=== PATIENT | male | born 1980 | race Caucasian/White ===

== ENCOUNTER 2018-05-06 11:36 | Day surgery (SDC) | payer MEDICAID ==
[2018-05-01 08:40] VITALS: BMI 25.4
[2018-05-06] MEDS ORDERED: ceFAZolin IV 1 gm in Dextrose 1 GM/50 ML BAG IVPB ONE ×2 (14:18→14:47)
--- NOTE | 2018-05-06 14:21 | PCM.SURG1 ---
Surgeon's Initial Post Op Note - Surgeon's Notes Surgeon: Maddi Chocolate Dipper: KATHYA Type of Anesthesia: General LMA Anesthesia Administered By: staff Pre-Operative Diagnosis: Bladder tumor Operative Findings: Medium bladder tomor Post-Operative Diagnosis: same Operation Performed: TURBT MEDIUM Specimen/Specimens Removed: TUMOR Estimated Blood Loss: EBL {In ML}: 0 Blood Products Given: N/A Drains Used: No Drains Post-Op Condition: Good Date of Surgery/Procedure: 05/06/18 Time of Surgery/Procedure: 14:20
[2018-05-06] MEDS ORDERED: Midazolam 2 MG/2 ML VIAL ONE (14:31)
[2018-05-06] MEDS ORDERED: Propofol 10 mg/ml Inj (20 ML) ONE (14:32)
[2018-05-06] MEDS ORDERED: Bupivacaine HCl 0.5% PF (30 ml) Inj ONE (14:34)
[2018-05-06] MEDS ORDERED: Lidocaine 2% MPF (5 ml) Inj ONE (14:34)
[2018-05-06] MEDS ORDERED: Bacitracin Ointment 30 GM TUBE ONE (15:13)
--- NOTE | 2018-05-06 15:35 | PCM.SURG1 ---
Surgeon's Initial Post Op Note - Surgeon's Notes Surgeon: Maddi Freelance Displayer: Alice Type of Anesthesia: General LMA Anesthesia Administered By: staff Pre-Operative Diagnosis: Right testicular tumor Operative Findings: same Post-Operative Diagnosis: Right testicular tumor Operation Performed: Right inguinal orchiectomy Specimen/Specimens Removed: Testicle w tumor Estimated Blood Loss: EBL {In ML}: 0 Blood Products Given: N/A Drains Used: No Drains Post-Op Condition: Good Date of Surgery/Procedure: 05/06/18 Time of Surgery/Procedure: 15:35
[2018-05-06] MEDS ORDERED: Lactated Ringer's 1,000 ML IV SCH (16:00)
[2018-05-06] MEDS: HYDROmorphone 0.5 mg/0.5 ml ISec IVP PRN ×3 (16:06→16:48)
[2018-05-06] MEDS ORDERED: Lactated Ringer's 1,000 ML IV ONE (16:37)
[2018-05-06] MEDS ORDERED: HYDROmorphone 0.5 mg/0.5 ml ISec ONE (16:51)
[2018-05-06 17:12] VITALS: TEMP 98
[2018-05-06 18:09] VITALS: BP 118/70; PULSE 76; RESP 18; O2SAT 100
--- NOTE | 2018-05-14 02:28 | OP ---
PROCEDURE DATE: 05/06/2018 SURGEON: Yossi Linda MD PREOPERATIVE DIAGNOSIS: Right testicular tumor. POSTOPERATIVE DIAGNOSIS: Right testicular tumor. PROCEDURE: Right inguinal orchiectomy. DESCRIPTION OF PROCEDURE: Detailed informed consent was obtained from the patient listing all risks and complications of orchiectomy including impotency and infertility. He is aware of the x-ray findings of testicular tumor and he is aware that this procedure most likely will not cure it. He was brought into the room after he signed the consent. The timeout was taken according to rules and regulations of [facility]. After careful draping and prepping, the patient was entered through a retroperitoneal incision, and the incision was just distal to the internal ring. It was a horizontal incision of approximately 3 inches, carried down to the subcutaneous tissues, and the inguinal canal was opened. The testicle was then pushed up into the inguinal canal and exteriorized. A clamp was placed on the cord at the level of the internal ring, and a second clamp was placed next to it. A third clamp was placed distally closer to the testicle. The cord was severed, and the entire testicle with the terminal clamp was sent for pathological analysis. Then two silk sutures were used to tie, first below the proximal clamp and then after removing that clamp, below the distal clamp. Excellent hemostasis was achieved. The fasciae were then approximated with 2-0 Dexon suture. 3-0 chromic was used for the subcutaneous tissues, and skin shakir were used for the skin. The patient tolerated this procedure well and was sent to the recovery area in good condition. Yossi Linda MD
== END 2018-05-06 18:43 | disposition home or self-care (01) ==
LOC: C.SDS 11:36
PROVIDERS: ATTEND Urology
DX: C62.91 Malignant neoplasm of right testis, unspecified whether descended or undescended (principal)
CPT/HCPCS: 54530; 88309; J0690; J1170; J2250; J2704; J3010; J7120